=== PATIENT | male | born 1980 | race Two or more races ===

== ENCOUNTER 2020-05-08 19:05 | Emergency (ER) | payer BC ==
[~2020-05-08] VITALS: Ht 175.3 cm; Wt 86.2 kg
--- NOTE | 2020-05-08 19:40 | NUR ---
ED Nurse Note: Patient walked into the ED due to laceration on the left index finger. Pt was chopping a chicken using enrrique and accidentally cut himself. Laceration is approx 1inch, pressure applied by pt, no active bleeding noted. 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 + LOC approx less 10 sec. Pt was caught by family members upon falling and no head trauma/ injury noted. LAst tet shot 2006. Patient is AAOx4 and ambulatory. VSS as documented
--- NOTE | 2020-05-08 19:42 | Emergency Room Report ---
History of Present Illness General Chief Complaint: Laceration Source: Patient Present Illness HPI 39-year-old male with no signal past medical history here due to a laceration left index finger that happened after chopping chicken earlier today. Minimal bleeding noted however patient is not actively profusely bleeding. Small superficial avulsion laceration noted. Patient has range of motion of the affected side and is neurovascularly intact. Has full strength in all fingers. Reports that when he first had the cat he did decided to buenrostro down stairs and felt like passing out, and his friend caught him from falling. Patient denies any head injury loss of consciousness. Denies any chest pain shortness of breath. Reports that he usually does not look at the site of blood. Patient denies any past medical history, denies taking any blood thinners, drug use, and no other associate symptoms. Allergies: Coded Allergies: No Known Allergies (Unverified , 05/08/20) COVID-19 Screening Contact w/high risk pt: No Experienced COVID-19 symptoms?: No COVID-19 Testing performed PIN WORKER: No COVID-19 Screening: Negative COVID-19 COVID-19 Testing Source: [facility] Patient History Past Medical History: see triage record Past Surgical History: none Pertinent Family History: none Immunizations: UTD Reviewed Nursing Documentation: PMH: Agreed; PSxH: Agreed Review of Systems All Other Systems: negative except mentioned in HPI Physical Exam Vital Signs Date Time Temp Pulse Resp B/P (MAP) Pulse Ox O2 Delivery O2 Flow Rate FiO2 05/08/20 19:25 98.1 85 20 145/85 (105) 98 Sp02 EP Interpretation: reviewed, normal General Appearance: no apparent distress, alert, GCS 15, non-toxic Head: normocephalic, atraumatic Eyes: bilateral eye normal inspection, bilateral eye PERRL ENT: hearing grossly normal, normal pharynx, no angioedema, normal voice Neck: full range of motion, supple/symm/no masses Respiratory: chest non-tender, lungs clear, normal breath sounds, no r espiratory distress, no retraction, speaking full sentences Cardiovascular #1: normal inspection, no murmur Cardiovascular #2: 2+ carotid (R), 2+ carotid (L), 2+ radial (R), 2+ radial (L), 2+ dorsalis pedis (R), 2+ dorsalis pedis (L) Gastrointestinal: non tender, soft, no bruit, non-distended Rectal: deferred Genitourinary: no CVA tenderness Musculoskeletal: back normal, no calf tenderness Neurologic: alert, motor strength/tone normal, oriented x3, sensory intact, responsive, speech normal Psychiatric: judgement/insight normal, memory normal, mood/affect normal, no suicidal/homicidal ideation Skin: laceration - superficial lac left index finger Lymphatic: no adenopathy Procedures Laceration/Wound Repair Laceration/Wound Repair : Consent: Verbal Wound Location: upper extremity - left index finger Wound's Depth, Shape: superficial Wound Length (cm): 1 Wound Explored: clean Betadine Prep?: Yes Wound Repaired With: Dermabond Layer Closure?: Yes Sterile Dressing Applied?: Yes Splint Applied?: Yes Type of Splint Applied: metal Sling Applied?: No Patient Tolerated: Well Complications: None Medical Decision Making PA Attestation All my diagnosis and treatment plans were reviewed ad discussed with my supervising physician Dr. Rubio Diagnostic Impression: Primary Impression: Finger laceration Additional Impression: Vasovagal syncope ER Course 39-year-old male with no signal past medical history here due to a laceration left index finger that happened after chopping chicken earlier today. Minimal bleeding noted however patient is not actively profusely bleeding. Small superficial avulsion laceration noted. Patient has range of motion of the affected side and is neurovascularly intact. Has full strength in all fingers. Reports that when he first had the cat he did decided to buenrostro down stairs and felt like passing out, and his friend caught him from falling. Patient denies any head injury loss of consciousness. Denies any chest pain shortness of breath. Reports that he usually does not look at the site of blood. Patient denies any past medical history, denies taking any blood thinners, drug use, and no other associate symptoms. Ddx considered but are not limited to : Superficial laceration, deep laceration, tendon involvement with laceration, laceration with foreign body, CO, vasovagal syncope Vital signs: are WNL, pt. is afebrile H&PE are most consistent with: Vasovagal syncope, superficial laceration of finger ORDERS: CBC, CMP, troponin, EKG, chest x-ray, finger x-ray, mupirocin ointment ED INTERVENTIONS:NS bolus, wound closure, cleaned and dressed DISCHARGE: At this time pt. is stable for d/c to home. Will provide printed patient care instructions, and any necessary prescriptions. Care plan and follow up instructions have been discussed with the patient prior to discharge. Take medication as directed, follow primary care provider regarding the near syncopal episode, if worsening symptom return to emergency room vasovagal syn cope is most likely secondary to site of blood however advised patient to follow-up with primary doctor for further evaluation in this regard. EKG Diagnostic Results Rate: bradycardiac Rhythm: other - Slightly bradycardic ST Segments: no acute changes Other Impression No acute ST changes ASA given to the pt in ED: No Chest X-Ray Diagnostic Results Chest X-Ray Diagnostic Results : Chest X-Ray Ordered: Yes # of Views/Limited/Complete: 1 View Indication: Other EP Interpretation: Yes PA Xray: Interpretation reviewed, by supervising MD, and agrees with findings. Interpretation: no consolidation, no effusion, no pneumothorax Impression: No acute disease Electronically Signed by: Guille Vivar PA-C Other X-Ray Diagnostic Results Other X-Ray Diagnostic Results : X-Ray ordered: Left finger x-ray # of Views/Limited Vs Complete: 3 View Indication: Pain EP Interpretation: Yes PA Xray: Interpretation reviewed, by supervising MD, and agrees with findings. Interpretation: no dislocation, no soft tissue swelling, no fractures, other - No foreign body Impression: No acute disease Electronically Signed by: Guille Vivar PA-C Last Vital Signs Date Time Temp Pulse Resp B/P (MAP) Pulse Ox O2 Delivery O2 Flow Rate FiO2 05/08/20 19:25 98.1 85 20 145/85 (105) 98 Disposition: HOME, SELF-CARE Condition: Stable Scripts Mupirocin* (MUPIROCIN*) 22 Gm Oint...g. 1 APPLIC TOPIC THREE TIMES A DAY, #22 GM Prov: Guille Orourke 05/08/20 Patient Instructions: Laceration Care, Adult, Vasovagal Syncope, Adult Additional Instructions: Take medication as directed, follow primary care provider regarding the near syn copal episode, if worsening symptom return to emergency room vasovagal syncope is most likely secondary to site of blood however advised patient to follow-up with primary doctor for further evaluation in this regard. Guille Orourke May 08, 2020 19:42
--- NOTE | 2020-05-08 20:00 | NUR ---
ED Nurse Note: Xray done
[2020-05-08] MEDS: Bacitracin Oint UD TOPIC ONE (20:32)
[2020-05-08 20:35] VITALS: BP 145/85
[2020-05-08 20:37] LABS: BASOPHILS % (AUTO) 0.8 % (0.0-2.0); EOSINOPHILS % (AUTO) 1.2 % (0.0-3.0); HEMATOCRIT 47.6 % (42.0-52.0); LYMPHOCYTES % (AUTO) 25.2 % (20.0-45.0); MEAN CORPUSCULAR VOLUME 89 FL (80-99); MONOCYTES % (AUTO) 5.2 % (1.0-10.0); NEUTROPHILS % (AUTO) 67.6 % (45.0-75.0); PLATELET COUNT 241 K/UL (150-450); RED BLOOD COUNT 5.37 M/UL (4.70-6.10); RED CELL DISTRIBUTION WIDTH 12.4 % (11.6-14.8); WHITE BLOOD COUNT 7.6 K/UL (4.8-10.8)
[2020-05-08 20:55] LABS: ANION GAP 7 mmol/L (5-15); BLOOD UREA NITROGEN 7 mg/dL (7-18); CALCIUM 9.1 MG/DL (8.5-10.1); CARBON DIOXIDE 28 MMOL/L (21-32); CHLORIDE 104 MMOL/L (98-107); CREATININE 0.9 MG/DL (0.55-1.30); POTASSIUM 3.5 MMOL/L (3.5-5.1); SODIUM 139 MMOL/L (136-145)
--- NOTE | 2020-05-08 21:00 | NUR ---
ED Nurse Note Dermabond applied, dressing/finger splint applied.
[2020-05-08 21:06] LABS: ALANINE AMINOTRANSFERASE 19 U/L (12-78); ALBUMIN 3.7 G/DL (3.4-5.0); ALBUMIN/GLOBULIN RATIO 1.1 (1.0-2.7); ALKALINE PHOSPHATASE 65 U/L (46-116); ASPARTATE AMINO TRANSFERASE 16 U/L (15-37); BILIRUBIN,TOTAL 1.1 MG/DL (0.2-1.0)
[2020-05-08 21:07] LABS: BILIRUBIN,DIRECT 0.3 MG/DL (0.0-0.3)
[2020-05-08] MEDS ORDERED: MUPIROCIN22 GM TOPIC (21:13)
[2020-05-08 21:30] VITALS: BP 145/85
--- NOTE | 2020-05-08 21:30 | NUR ---
ER DISCHARGE NOTE: Patient is cleared to be discharged per ERMD, pt is aox4, on room air, with stable vital signs. pt was given dc and prescription instructions, pt was able to verbalize understanding, pt id band and iv site removed without complications. pt is able to ambulate with steady gait. pt took all belongings.
--- NOTE | 2020-05-09 14:55 | Diagnostic Imaging Report ---
Indication: Chest pain Technique: XRAY Chest 1v Comparison: None Findings: Borderline cardiomegaly. Mediastinal contours are sharp. Mild biapical scarring. Otherwise there is no focal airspace consolidation, pneumothorax or pleural effusion. Osseous structures demonstrate no acute abnormality. Impression: No radiographic evidence of acute cardiopulmonary disease. Borderline cardiomegaly.
--- NOTE | 2020-05-09 14:58 | Diagnostic Imaging Report ---
Indication: Pain Technique: 3 views of the left fingers Comparison: None Findings: Bony mineralization within normal limits. No acute fracture or dislocation is identified. No soft tissue defect/laceration is appreciated radiographically. No radiopaque foreign body. Impression: No acute fracture or dislocation.
== END 2020-05-09 01:24 | disposition home or self-care (01) ==
LOC: EMR 20:03
DX: S61.211A Laceration without foreign body of left index finger without damage to nail, initial encounter (principal); R55 Syncope and collapse; W26.0XXA Contact with knife, initial encounter; Y93.G3 Activity, cooking and baking; Y92.9 Unspecified place or not applicable
CPT/HCPCS: 36415; 71045; 80053; 82248; 84484; 85025; 93005; 96360; 99284